=== PATIENT | male | born 1965 | race African-American/Black ===

== ENCOUNTER 2024-01-09 08:04 | Emergency (ER) | payer MEDICAID ==
[~2024-01-09] VITALS: Ht 185.4 cm; Wt 85.0 kg
[2024-01-09 08:37] VITALS: BP 131/101; TEMP 98.4
[2024-01-09] MEDS: PREDNISONE 20MG TABLET PO STA (09:00)
[2024-01-09 09:27] VITALS: PULSE 86; RESP 16; O2SAT 95
[2024-01-09] MEDS: ALBUTEROL (0.083%) 2.5MG/3ML NEB HHN STA ×2 (09:27→12:06)
[2024-01-09] MEDS: IPRATROPIUM BROMIDE (0.02%) 0.5MG/2.5ML NEB HHN STA (09:27)
[2024-01-09] MEDS ORDERED: P20 MT (11:43)
[2024-01-09] MEDS ORDERED: ALBU6.7H15 INH (11:43)
[2024-01-09 12:06] VITALS: PULSE 78; RESP 20; O2SAT 99
== END 2024-01-09 09:56 | disposition home or self-care (01) ==
LOC: ER 08:04
DX: J45.909 Unspecified asthma, uncomplicated (principal)
CPT/HCPCS: 94640; 93005; 99283; J7512; Z7610 ×3